=== PATIENT | male | born 1980 | race Caucasian/White ===

== ENCOUNTER 2019-09-20 10:49 | Outpatient (REF) | payer MEDICAID, SELFPAY ==
[2019-09-20 16:32] LABS: COMMENT (LAB VIEW ONLY) 52.32 mg/dL
== END 2019-09-20 11:09 ==
LOC: NCHCN 10:49
PROVIDERS: Visit Provider Physician Assistant
DX: E10.9 Type 1 diabetes mellitus without complications (principal)
CPT/HCPCS: 82043; 82570

== ENCOUNTER 2019-09-20 11:30 | Emergency (ER) | payer MEDICAID, SELFPAY ==
[2019-09-20 11:36] VITALS: BP 152/82; PULSE 112; RESP 15; TEMP 36.1; O2SAT 96
--- NOTE | 2019-09-20 11:45 | DI.RAD_ITS ---
EXAM: XR PORTABLE CHEST AP CLINICAL HISTORY: Cough, R/O pneumonia TECHNIQUE: 2D digital imaging was performed. COMPARISON: No exams were available for comparison FINDINGS: LUNGS: Clear. No pleural abnormality seen. HEART: Normal in size for projection. MEDIASTINUM: Normal. OTHER FINDINGS: Lung base is partially obscured by overlying abdominal soft tissues. IMPRESSION: No acute pulmonary findings. DATA REPOSITORY: RADIATION DOSE DELIVERED:
--- NOTE | 2019-09-20 11:54 | W.ED.GENAD ---
Discharge Plan Disposition Patient Disposition: HOME Condition: Improving Discharge Details Chief Complaint: Diabetes Clinical Impression: Hyperglycemia due to diabetes mellitus Primary Care Provider: Miguel Angel Mcknight ED Provider: Karen Green Home Meds and New Rx's Prescriptions: No Action lisinopril 20 mg Tablet 20 mg PO DAILY RF: 0 gabapentin 300 mg Capsule 300 mg PO TID RF: 0 insulin asp prt-insulin aspart [Novolog Mix 70-30FlexPen U-100] 100 unit/mL (70-30) Insulin Pen 80 unit SUBCUT BID RF: 0 Discharge Instructions Instructions: Diabetic Hyperglycemia (ED) Additional Instructions: Do not take your 70/30 dose of insulin tonight. supervisor [employer] your prescription that kidney drugs as directed. Please have your labs drawn and follow-up as directed by primary care. Follow up with primary care provider in 3-5 days. Return to ED sooner if any worsening or concerns. Increase oral fluids. Please return to the ED immediately if you have any vomiting, diarrhea, increased thirst, sugar greater than 400, or any worsening or concerns. Or any further problems obtaining your insulin. Referrals: Miguel Angel Mcknight [Primary Care Provider] - Medical Decision Making 38-year-old obese male presents to the ER with chief complaint of URI type symptoms and problems getting his and insulin refill. Patient reports cough initially with green productive sputum now is clear denies sore throat or ear pain or runny nose. Denies sick contacts. Patient was seen by [facility] this morning for primary care appointment and was prescribed insulin NovoLog 70/30 FlexPen for prescription of 80 units subcu twice a day. He is also taking gabapentin 300 mg 3 times a day and lisinopril 20 mg daily for hypertension. Patient states that he just moved here from [place] approximately 1 month ago and has recently gotten insurance coverage. He denies nausea vomiting diarrhea, fever or chills. Initial fingerstick glucose is 585. Last insulin was last night reports approximately 30 units 1155: Spoke with [facility] spoke with Shilpa LEBLANC regarding patient she reports that the prior authorization for the insulin was faxed to the pharmacy and is complete near awaiting to hear back from the insurance company. At this time initial labs ordered including CBC, CMP, urinalysis, hemoglobin A1c 1 L normal saline and 10 units of regular insulin. Will recheck CBG approximately 30 minutes. Discussed case with Kaylin with care management regarding insulin. 1330: Critical glucose value of 547 received by lab, patient does have a high anion gap of 13.5, white blood cell count of 15.14 hemoglobin A1c of 8.9%. X-ray at bedside right now for portable chest x-ray, additional liter of normal saline ordered and every hour CBGs ordered. If glucose and BMP not improved after second liter will discuss possible insulin drip, admission with patient for DKA. EXAM: XR PORTABLE CHEST AP CLINICAL HISTORY: Cough, R/O pneumonia TECHNIQUE: 2D digital imaging was performed. COMPARISON: No exams were available for comparison FINDINGS: LUNGS: Clear. No pleural abnormality seen. HEART: Normal in size for projection. MEDIASTINUM: Normal. OTHER FINDINGS: Lung base is partially obscured by overlying abdominal soft tissues. IMPRESSION: No acute pulmonary findings. 1425: Patient reevaluation, he is stable, has no complaints at this time. IV normal saline liter #2 is infusing without difficulty, repeat CBG is 466. Will repeat BMP to evaluate anion gap. Discussed options with patient regarding admission versus discharge home. Patient states he does not want to be admitted at this time, if this is the case will give a dose of the 70/30 # 80 units subcu here and attempt to write patient a different prescription for the units of 70/30 subcu instead of the FlexPen. 1500: Repeat BMP resulted and shows sodium of 135, potassium 4.6, anion gap is 9.0 glucose is 423, hemoglobin A1c is 8.9%. Repeat BGL in department is down to 300s. At this time I feel it is safe for patient to be discharged home. Discussed possible Julio testing which patient declined at this time. [id number] with Stan Arredondo regarding patient's prescription. She reports that they do not have the Novolin 70/30 in stock but the day of the NovoLog. Change prescription to NovoLog 70/30 FlexPen 8 units subcu twice daily. We will give 80 units 70/30 insulin aspart in department now prior to discharge. Will discharge patient home with strict return instructions. This text was generated using [employer]HSquaredation system, please disregard any oddities of phrase or misspellings. HPI General Mode of arrival: ambulatory. Date/Time Provider Initiated Documentation: 09/20/19 11:43. Limitations to Documentation: no limitations. Information obtained by: patient. HPI Narrative: 38-year-old obese male presents to the ER with chief complaint of URI type symptoms and problems getting his and insulin refill. Patient reports cough initially with green productive sputum now is clear denies sore throat or ear pain or runny nose. Denies sick contacts. Patient was seen by [facility] this morning for primary care appointment and was prescribed insulin NovoLog 70/30 FlexPen for prescription of 80 units subcu twice a day. He is also taking gabapentin 300 mg 3 times a day and lisinopril 20 mg daily for hypertension. Patient states that he just moved here from [place] approximately 1 month ago and has recently gotten insurance coverage. He denies nausea vomiting diarrhea, fever or chills. Initial fingerstick glucose is 585. Last insulin was last night reports approximately 30 units. Related Data Home Medications Medication Instructions Recorded Confirmed gabapentin 300 mg PO TID 09/20/19 09/20/19 insulin asp prt-insulin aspart 80 unit SUBCUT BID 09/20/19 09/20/19 [Novolog Mix 70-30FlexPen U-100] lisinopril 20 mg PO DAILY 09/20/19 09/20/19 Allergies Allergy/AdvReac Type Severity Reaction Status Date / Time No Known Allergies Allergy Unverified 09/20/19 11:36 General Stated Complaint: Diabetes NASIMA: 3 Review of Systems Narrative: Constitutional: Negative for weight loss, alert and oriented, well groomed, normal body habitus, appears comfortable. HEENT: Denies trauma, headaches, blurry vision, nasal discharge, sore throat, trouble swallowing. Chest: Denies chest pain, palpitations, irregular rhythm, hypertension. Respiratory: Denies Shortness of breath, cough, hemoptysis. GI: Denies abdominal pain, nausea, vomiting, diarrhea, constipation. : Denies dysuria, hematuria, flank pain, rectal bleeding. Neuro: Denies dizziness, blurry vision, weakness, syncope, headache or facial numbness. Hematologic: Denies easy bruising, intolerance to heat or cold, hair loss. Endocrine: Reports increased thirst, frequency of urination COUNT INCLUDES THE [facility] Social History Smoking/Tobacco Use Status: Current every day Tobacco Type: cigarettes and e-cigarettes Alcohol Intake: current Alcohol Intake frequency: a few times a month Drug use: Occasionally Substance use type: marijuana Do you feel safe at home: Yes Do you feel safe in your relationship?: Yes Exam Narrative Exam Narrative: Constitutional: Alert and oriented x3. Appears stated age. Obese body habitus. Head: Normocephalic, no trauma. Eyes: Pupils PERRLA, Red reflex noted, EOM's intact. Eyelids symmetrical without lesions, discharge, or swelling. ENT: Bilateral TM's WNL, External ear normal to inspection, no mastoid TTP, swelling, or erythema, Nasal turbinates WNL, no nasal discharge. Poor dentition, Posterior pharynx mildly erythemic, no exudate. Chest: Mildly tachycardic, Normal S1, S2, distal pulses intact. Resp: Lungs clear to auscultation bilaterally, no wheezes, rales, or rhonchi. Musculoskeletal: Normal gait, 5/5 strength to all four extremities. Skin: No suspicious rashes or lesions. Capillary refill less than 2 sec. Neurologic: Cranial nerves II-XII intact. Alert and oriented x 3. DTR's intact. Hematologic/Lymphatic: No ecchymosis, no lymphadenopathy. Course Vital Signs Vital signs: Vital Signs Temperature 36.1 C L 09/20/19 11:36 Pulse 112 H 09/20/19 11:36 Respiratory Rate 15 09/20/19 11:36 Blood Pressure 152/82 H 09/20/19 11:36 Pulse Oximetry 96 09/20/19 11:36 Temperature 36.1 C L 09/20/19 11:36 Temperature Source Temporal Artery Scan 09/20/19 11:36 Pulse 112 H 09/20/19 11:36 Respiratory Rate 15 09/20/19 11:36 Respiratory Effort Non-Labored 09/20/19 11:43 Blood Pressure 152/82 H 09/20/19 11:36 Blood Pressure Position Sitting 09/20/19 11:36 Pulse Oximetry 96 09/20/19 11:36 Oxygen Delivery Method Room Air 09/20/19 11:36 Oxygen Flow Rate 0 09/20/19 11:36 Pain Level 0 09/20/19 11:36
[2019-09-20] MEDS: Insulin REGULAR-Human 100 UNITS/ML UNIT 10 UNITS SC (12:02)
[2019-09-20 12:06] LABS: Bilirubin Negative (Negative); Blood Negative (Negative); Clarity Clear (Clear); Glucose 500 mg/dL (Negative); Ketones 40 mg/dL (Negative); Leukocyte Esterase Negative (Negative); Nitrite Negative (Negative); Specific Gravity 1.015 (1.005-1.025); Urobilinogen 0.2 EU/dL (Up TO 0.2)
[2019-09-20] MEDS: Normal Saline 1,000 ML 1000 ML IV ×2 (13:03→14:00)
[2019-09-20 13:05] LABS: Abs Immature Grans 0.07 k/cumm (0.0-0.09); Absolute Basophil Count 0.03 k/cumm (0.0-0.2); Absolute Eosinophil Count 0.11 k/cumm (0.0-0.7); Absolute Monocyte Count 1.09 k/cumm (0.11-0.7); Absolute Neutrophil Count 11.64 k/cumm (1.2-6.7); Basophils % 0.2; Eosinophils % 0.7; HCT 41.8 % (40.0-50.0); HGB 13.9 g/dL (13.5-17.5); Immature Grans % 0.5 %; Lymphocytes % 14.5; Mean Corp. HGB Concentration 33.3 g/dL (32.0-36.0); Mean Corpuscular Hemoglobin 29.2 pg (27.0-33.0); Mean Corpuscular Volume 87.8 fL (80-95); Mean Platelet Volume 12.7 fL (8.0-11.0); Monocytes % 7.2; Neutrophils % 76.9; Platelet Count 320 x1000/uL (130-400); RBC 4.76 m/cumm (4.50-6.00); RBC Distribution Width 13.6 % (11.8-14.1); White Blood Cell Count 15.14 k/cumm (4.4-10.8)
[2019-09-20 13:18] LABS: ALT 46 U/L (16-63); AST 20 U/L (15-37); Albumin 3.5 g/dL (3.4-5.0); Alkaline Phosphatase 82 U/L (46-116); Anion Gap 13.5 mmol/L (3-11); BUN 20 mg/dL (7-18); Bilirubin, Total 0.7 mg/dL (0.2-1.0); CO2 21.5 mmol/L (21.0-32.0); CREATININE 1.28 mg/dL (0.70-1.30); Calcium 8.6 mg/dL (8.5-10.1); Chloride 96 mmol/L (98-107); Potassium 5.1 mmol/L (3.5-5.1); Sodium 131 mmol/L (136-145); Total Protein 7.3 g/dL (6.4-8.2)
[2019-09-20 13:20] LABS: Glucose 547 mg/dL (74-106)
[2019-09-20 13:26] LABS: Hemoglobin A1C 8.9 % (3.8-5.6)
[2019-09-20 14:21] VITALS: BP 121/59; PULSE 95; RESP 20; TEMP 36.3; O2SAT 96
--- NOTE | 2019-09-20 15:00 | NUR.NOTE ---
pt states that he feels much better he has refused offer for food . he has had 2 diet [place] [facility] Nursing Note:
[2019-09-20 15:02] LABS: BUN 20 mg/dL (7-18); Calcium 8.2 mg/dL (8.5-10.1); Chloride 101 mmol/L (98-107); Glucose 423 mg/dL (74-106); Potassium 4.6 mmol/L (3.5-5.1); Sodium 135 mmol/L (136-145)
[2019-09-20 15:53] VITALS: BP 160/61; PULSE 96; RESP 18; TEMP 36.5; O2SAT 96
[2019-09-20] MEDS: Insulin Aspart 100 UNITS/ML UNIT 80 UNITS SC (16:18)
== END 2019-09-20 16:01 | disposition home or self-care (01) ==
PROVIDERS: Student in an Organized Health Care Education/Training Program; Emergency Provider Registered Nurse Emergency; PCP Physician Assistant
DX: E11.65 Type 2 diabetes mellitus with hyperglycemia (principal); R05 Cough; E87.2 Acidosis; Z79.4 Long term (current) use of insulin; I10 Essential (primary) hypertension
CPT/HCPCS: 36415; 36416; 80048; 80053; 82962; 96360; 96372; 99284; 71045; 81003; 83036; 85025; J1815